=== PATIENT | male | born 1995 | race American Indian/Alaskan Native ===

== ENCOUNTER 2021-03-31 22:12 | Emergency (ER) | payer SELFPAY ==
[2021-03-31 23:29] VITALS: BP 128/71
[2021-03-31] MEDS ORDERED: ACETAMINOPHEN 500 MG TAB PO ONE (23:29)
--- NOTE | 2021-04-01 01:43 | XRay Report ---
CHEST 1 VIEW 04/01/2021 1:28 AM INDICATION / CLINICAL INFORMATION: cough, fever. COMPARISON: None available. FINDINGS: SUPPORT DEVICES: None. HEART / MEDIASTINUM: No significant abnormality. LUNGS / PLEURA: No significant pulmonary or pleural abnormality. No pneumothorax. ADDITIONAL FINDINGS: No significant additional findings. IMPRESSION: 1. No acute findings. Signer Name: Eliceo Parekh MD Signed: 04/01/2021 1:38 AM Workstation Name: [id number]
--- NOTE | 2021-04-01 02:03 | Emergency Department Report ---
- General Chief Complaint: Fever Stated Complaint: HEART PAIN COUGHING X3DAYS Source: patient Mode of arrival: Ambulatory Limitations: No Limitations - History of Present Illness Initial Comments: Patient is a 26-year-old -British male with no past medical history presents to the ED with complaint of acute onset persistent diffuse body aches and pains, fever and chills, nasal and sinus congestion, sore throat, dysphagia, persistent dry cough with lack of appetite for the last 1 week, worse in the last 3 days. Patient states that no one else at home is at similar symptoms. Patient denies dizziness, syncope, nausea and vomiting, diarrhea, chest pain, shortness of breath, abdominal pain, change in vision or headache. MD Complaint: fever, cough, sore throat, rhinorrhea, nasal congestion, sinus pain -: Sudden, days(s) (3) Severity: moderate Severity scale (0 -10): 4 Quality: dull, aching Consistency: constant Improves With: nothing Worsens With: nothing Associated Symptoms: fever, chills, myalgias, headache, rhinorrhea, nasal congestion, sore throat, cough. denies: chest pain, shortness of breath, abdominal pain, nausea, vomiting, dysuria, rash, confusion, right sweats, weight loss, epistaxis, hoarseness, ear pain, other Treatments Prior to Arrival: none - Related Data Previous Rx's Medication Instructions Recorded Last Taken Type Azithromycin [Zithromax Z-JOSEPH] 250 mg PO DAILY #6 tablet 04/01/21 Unknown Rx Benzonatate [Tessalon Perles] 100 mg PO Q8HR #30 capsule 04/01/21 Unknown Rx Cetirizine HCl [Zyrtec 10mg tab] 10 mg PO DAILY #30 tablet 04/01/21 Unknown Rx Ibuprofen [Motrin] 600 mg PO Q8H PRN #24 tablet 04/01/21 Unknown Rx predniSONE [Deltasone] 40 mg PO QDAY #10 tab 04/01/21 Unknown Rx Allergies Allergy/AdvReac Type Severity Reaction Status Date / Time No Known Allergies Allergy Verified 04/01/21 01:08 ED Review of Systems ROS: Stated complaint: HEART PAIN COUGHING X3DAYS Other details as noted in HPI Constitutional: chills, fever, malaise Eyes: denies: eye pain, eye discharge, vision change ENT: throat pain, congestion. denies: ear pain Respiratory: cough. denies: shortness of breath, wheezing Cardiovascular: denies: chest pain, palpitations Endocrine: no symptoms reported Gastrointestinal: denies: abdominal pain, nausea, diarrhea Genitourinary: denies: urgency, dysuria Musculoskeletal: back pain, arthralgia, myalgia. denies: joint swelling Skin: denies: rash, lesions Neurological: denies: headache, weakness, paresthesias Psychiatric: denies: anxiety, depression Hematological/Lymphatic: denies: easy bleeding, easy bruising ED Past Medical Hx - Past Medical History Previous Medical History?: No - Surgical History Past Surgical History?: Yes Additional Surgical History: left femur repair - Medications Home Medications: Home Medications Medication Instructions Recorded Confirmed Last Taken Type Azithromycin [Zithromax Z-JOSEPH] 250 mg PO DAILY #6 tablet 04/01/21 Unknown Rx Benzonatate [Tessalon Perles] 100 mg PO Q8HR #30 capsule 04/01/21 Unknown Rx Cetirizine HCl [Zyrtec 10mg tab] 10 mg PO DAILY #30 tablet 04/01/21 Unknown Rx Ibuprofen [Motrin] 600 mg PO Q8H PRN #24 tablet 04/01/21 Unknown Rx predniSONE [Deltasone] 40 mg PO QDAY #10 tab 04/01/21 Unknown Rx ED Physical Exam - General Limitations: No Limitations General appearance: alert, in no apparent distress - Head Head exam: Present: atraumatic, normocephalic, normal inspection - Eye Eye exam: Present: normal appearance, PERRL, EOMI Pupils: Present: normal accommodation - ENT ENT exam: Present: mucous membranes moist, TM's normal bilaterally, normal external ear exam, other (Grossly congested nasal passages; erythematous oropharynx and tonsils) - Neck Neck exam: Present: normal inspection, full ROM, lymphadenopathy. Absent: tenderness - Respiratory Respiratory exam: Present: normal lung sounds bilaterally. Absent: respiratory distress, wheezes, rales, stridor, chest wall tenderness, accessory muscle use, decreased breath sounds - Cardiovascular Cardiovascular Exam: Present: regular rate, normal rhythm, normal heart sounds. Absent: systolic murmur, diastolic murmur, rubs, gallop - GI/Abdominal GI/Abdominal exam: Present: soft, normal bowel sounds. Absent: tenderness, guarding, rebound, hyperactive bowel sounds, hypoactive bowel sounds, organomegaly - Extremities Exam Extremities exam: Present: normal inspection, full ROM, normal capillary refill - Back Exam Back exam: Present: normal inspection, full ROM. Absent: CVA tenderness (L), muscle spasm, paraspinal tenderness, vertebral tenderness - Neurological Exam Neurological exam: Present: alert, oriented X3, CN II-XII intact, normal gait, reflexes normal - Psychiatric Psychiatric exam: Present: normal affect, normal mood - Skin Skin exam: Present: warm, dry, intact, normal color. Absent: rash ED Course Vital Signs 03/31/21 04/01/21 23:28 02:07 Temperature 101.3 F H 98.5 F Pulse Rate 85 Respiratory 16 Rate Blood Pressure 128/71 [Right] O2 Sat by Pulse 98 Oximetry ED Medical Decision Making - Radiology Data [facility] [address] [place] [address] XRay Report Signed Patient: MARNI RODRÍGUEZ MR#: [id number] 8 : 1995 Acct:[id number] Age/Sex: 25 / M ADM Date: 03/31/21 Loc: ED Attending Dr: Ordering Physician: CAROLYN DAVID Date of Service: 04/01/21 Procedure(s): XR chest 1V ap Accession Number(s): [id number] cc: CAROLYN DAVID Fluoro Time In Minutes: CHEST 1 VIEW 04/01/2021 1:28 AM INDICATION / CLINICAL INFORMATION: cough, fever. COMPARISON: None available. FINDINGS: SUPPORT DEVICES: None. HEART / MEDIASTINUM: No significant abnormality. LUNGS / PLEURA: No significant pulmonary or pleural abnormality. No pneumothorax. ADDITIONAL FINDINGS: No significant additional findings. IMPRESSION: 1. No acute findings. Signer Name: Eliceo Berry MD Signed: 04/01/2021 1:38 AM Workstation Name: [id number] Transcribed By: CW Dictated By: ESEQUIEL BERRY MD Electronically Authenticated By: ESEQUIEL BERRY MD Signed Date/Time: 04/01/21137 DD/ 7 TD/TT: - Medical Decision Making This is a 26-year-old -British male with no past medical history presents to the ED with complaint of acute onset persistent diffuse body aches and pains, fever and chills, nasal and sinus congestion, sore throat, dysphagia, persistent dry cough with lack of appetite for the last 1 week, worse in the last 3 days. Patient states that no one else at home is at similar symptoms. In the ED, patient is alert and oriented x3 and is not in any distress. Patient is however febrile in triage. Patient was treated for fever in the ED and chest x-ray showed no acute cardiopulmonary abnormalities or pneumonitis. On reevaluation, patient's fever is well controlled with medications. Patient symptoms are likely due to acute upper respiratory infection versus bronchitis versus strep pharyngitis. Patient was therefore discharged home on medications and advised to follow-up with his primary care physician in 5 to 7 days for reevaluation. Patient was also advised to consider going for COVID-19 test in any of the outpatient facilities and if positive to self quarantine at home for 10 days. Patient was advised to return to the ED immediately if symptoms get worse. - Differential Diagnosis Strep pharyngitis; pneumonia; COVID-19; URI; bronchitis Critical care attestation.: If time is entered above; I have spent that time in minutes in the direct care of this critically ill patient, excluding procedure time. ED Disposition Clinical Impression: Acute upper respiratory infection, Fever and chills Acute pharyngitis Qualifiers: Pharyngitis/tonsillitis etiology: other specified organisms Qualified Code(s): J02.8 - Acute pharyngitis due to other specified organisms Acute bronchitis Qualifiers: Bronchitis organism: other organism Qualified Code(s): J20.8 - Acute bronchitis due to other specified organisms Disposition: 01 HOME / SELF CARE / HOMELESS Is pt being admited?: No Does the pt Need Aspirin: No Condition: Stable Instructions: Cough, Adult, [id number], Acute Bronchitis, Adult, [id number], Upper Respiratory Infection, Adult, [id number], Pharyngitis, [id number], Acute Bronchitis (ED) Additional Instructions: Chest x-ray showed no acute cardiopulmonary abnormalities or pneumonitis. Therefore take medications and drink plenty of fluids. Follow-up with your [facility] care physician in 7 to 10 days for reevaluation. Return to the ED immediately if symptoms get worse. Prescriptions: predniSONE [Deltasone] 40 mg PO QDAY #10 tab Ibuprofen [Motrin] 600 mg PO Q8H PRN #24 tablet PRN Reason: Pain Benzonatate [Tessalon Perles] 100 mg PO Q8HR #30 capsule Azithromycin [Zithromax Z-JOSEPH] 250 mg PO DAILY #6 tablet Cetirizine HCl [Zyrtec 10mg tab] 10 mg PO DAILY #30 tablet Referrals: [facility] [Provider Group] - 3-5 Days Time of Disposition: 02:00 Print Language: SWEDISH
== END 2021-04-01 02:21 | disposition home or self-care (01) ==
LOC: ED 22:12
DX: J06.9 Acute upper respiratory infection, unspecified (principal); J20.8 Acute bronchitis due to other specified organisms; J02.8 Acute pharyngitis due to other specified organisms; R50.9 Fever, unspecified; Z79.899 Other long term (current) drug therapy; Z98.890 Other specified postprocedural states
CPT/HCPCS: 71045